=== PATIENT | male | born 1955 | race Caucasian/White ===

== ENCOUNTER 2017-02-27 18:19 | Emergency (ER) | payer MEDICAID ==
[~2017-02-27] VITALS: Ht 154.9 cm; Wt 5.4 kg
[2017-02-27 19:16] LABS: Hematocrit 37.9 % (41.0-53.0); Hemoglobin 13.1 g/dL (13.5-17.5); Mean Corpuscular Hgb Conc. 34.6 g/dL (32.0-36.0); Mean Platelet Volume 9.4 fL (7.4-10.4); Platelet Count (auto) 380 10^3/uL (140-450); Red Cell Distribution Width 13.8 % (11.6-16.0); White Blood Cell 9.1 10^3/uL (4.4-10.8)
[2017-02-27 19:19] LABS: Metamyelocytes % 0; Myelocytes % 0; Promyelocytes % 0; Reactive Lymphocytes 0
[2017-02-27 19:41] LABS: Albumin 3.1 g/dL (3.4-5.0); Alkaline Phosphatase 1439 U/L (45-117); Anion Gap 16 (5-15); Aspartate Aminotransferase 305 U/L (15-37); BUN/Creatinine Ratio 13.8; Bilirubin, Total 14.4 mg/dL (0.2-1.0); Blood Urea Nitrogen 8 mg/dL (7-18); Calcium 9.1 mg/dL (8.5-10.1); Carbon Dioxide 25 mmol/L (21-32); Chloride 83 mmol/L (98-107); GFR African American 184 mL/min; GFR Non-African American 152 mL/min; Glucose 195 mg/dL (74-106); Magnesium 1.5 mg/dL (1.6-2.6); Potassium 3.4 mmol/L (3.5-5.1); Sodium 124 mmol/L (136-145); Total Protein 7.1 g/dL (6.4-8.2)
[2017-02-27 21:25] LABS: Platelet Estimate Adequate
[2017-02-27 21:26] LABS: Macrocytosis Slight
[2017-02-27 21:31] LABS: Amylase 26 U/L (25-115)
[2017-02-27] MEDS ORDERED: MORPHINE SULFATE 4 MG/ML SYRG IV ONE (21:45)
[2017-02-27] MEDS ORDERED: PANTOPRAZOLE SODIUM 40 MG/10 ML VIAL IV ONE (21:45)
[2017-02-27] MEDS ORDERED: ONDANSETRON HCL 4 MG/2 ML VIAL IV ONE (21:45)
[2017-02-27] MEDS ORDERED: SODIUM CHLORIDE 0.9% 1,000 ML IV ONE (21:45)
[2017-02-27] MEDS ORDERED: POTASSIUM CHL 10% (20 MEQ/15ML) ORAL SOLN PO ONE (21:45)
[2017-02-27] MEDS ORDERED: THIAMINE INJ 100 MG, MULTIPLE VITAMIN 10 ML, FOLIC ACID 1 MG, MAGNESIUM SULF SDV 50% 8 ... IV SCH ×5 (23:00)
[2017-02-28] MEDS ORDERED: HYDROcodone-ACET 5/325MG TAB PO ONE (05:45)
[2017-02-28] MEDS ORDERED: LORazepam 2MG/ML-1ML VIAL IV ONE (08:15)
[2017-02-28 12:59] VITALS: BP 149/89
[2017-02-28] MEDS ORDERED: MORPHINE SULFATE 4 MG/ML SYRG IV ONE (13:30)
[2017-02-28] MEDS ORDERED: ONDANSETRON HCL 4 MG/2 ML VIAL IV ONE (13:30)
== END 2017-02-28 13:33 | disposition short-term general hospital (02) ==
LOC: EDUNIT# 18:19 → EDBD 18:19 → ER 18:34
DX: R17 Unspecified jaundice (principal); E11.65 Type 2 diabetes mellitus with hyperglycemia; F10.129 Alcohol abuse with intoxication, unspecified; Y90.8 Blood alcohol level of 240 mg/100 ml or more; F17.210 Nicotine dependence, cigarettes, uncomplicated
CPT/HCPCS: 36415; 74176; 76705; 80053; 80320; 82140; 82150; 82962; 83690; 83735; 84484; 85007; 85027; 93005; 96361; 96365; 96366; 96375; 96376; 99291; C9113; J2060; J2270; J2405; J3411; J3475; J7030; J7070

== ENCOUNTER 2017-03-10 18:30 | Emergency (ER) | payer MEDICAID ==
[~2017-03-10] VITALS: Ht 182.9 cm; Wt 72.6 kg
[2017-03-10 19:20] LABS: DEFINITIVE VIEW TRANSMISSION; Hematocrit 29.9 % (41.0-53.0); Hemoglobin 10.2 g/dL (13.5-17.5); Mean Corpuscular Hemoglobin 34.6 pg (28.0-32.0); Mean Corpuscular Volume 101.6 fL (80.0-100.0); Mean Platelet Volume 9.8 fL (7.4-10.4); Platelet Count (auto) 357 10^3/uL (140-450); SUSPECT VIEW TRANSMISSION
[2017-03-10 19:30] LABS: Metamyelocytes % 0; Myelocytes % 0; Promyelocytes % 0; Reactive Lymphocytes 0
[2017-03-10 20:06] LABS: Albumin 3.1 g/dL (3.4-5.0); Alkaline Phosphatase 1097 U/L (45-117); Anion Gap 12 (5-15); Aspartate Aminotransferase 98 U/L (15-37); BUN/Creatinine Ratio 17.4; Bilirubin, Total 6.4 mg/dL (0.2-1.0); Blood Urea Nitrogen 15 mg/dL (7-18); Carbon Dioxide 26 mmol/L (21-32); Chloride 93 mmol/L (98-107); GFR African American 117 mL/min; GFR Non-African American 96 mL/min; Glucose 379 mg/dL (74-106); Magnesium 1.5 mg/dL (1.6-2.6); Potassium 3.6 mmol/L (3.5-5.1); Sodium 131 mmol/L (136-145); Total Protein 7.4 g/dL (6.4-8.2)
[2017-03-10 20:32] LABS: Macrocytosis Slight; Platelet Estimate Adequate
[2017-03-10 20:42] LABS: INR 0.96 (0.9-1.15); Partial Thromboplastin Time 25.7 sec (22.64-33.71); Prothrombin Time 10.5 sec (9.37-12.3)
[2017-03-10] MEDS ORDERED: SODIUM CHLORIDE 0.9% 1,000 ML IV ONE ×2 (21:17)
[2017-03-10] MEDS ORDERED: LORazepam 2MG/ML-1ML VIAL IV ONE (21:30)
[2017-03-10] MEDS ORDERED: InsuLIN REG 1unit/0.01ml Soln (100units/ml) IV ONE (21:45)
[2017-03-10 21:56] LABS: Amylase 29 U/L (25-115)
[2017-03-10 22:13] LABS: B-Type Natriuretic Peptide 64.16 pg/mL (0-100)
[2017-03-10 22:14] LABS: Temperature: 24.1 C (20.0-25.0)
[2017-03-11] MEDS ORDERED: PIPERACILLIN-TAZOB 3.375GM 100 ML IV ONE (00:30)
[2017-03-11 03:31] VITALS: BP 137/85
[2017-03-11 04:05] LABS: Urine Bilirubin Negative (Negative); Urine Blood TRACE /uL (Negative); Urine Color Yellow (Yellow); Urine Ketone Negative (Negative); Urine Nitrite Negative (Negative); Urine RBC 4 /hpf (0 - 3); Urine Urobilinogen >12.0 mg/dL (Negative)
[2017-03-11 04:07] LABS: Urine Glucose 4+ mg/dL (Normal)
== END 2017-03-11 03:35 | disposition home or self-care (01) ==
LOC: ER 18:34
DX: E11.65 Type 2 diabetes mellitus with hyperglycemia (principal); F17.210 Nicotine dependence, cigarettes, uncomplicated; E87.1 Hypo-osmolality and hyponatremia
CPT/HCPCS: 36415; 71010; 74176; 80053; 81001; 82150; 82962; 83605; 83690; 83735; 83880; 84484; 85007; 85027; 85610; 85730; 87040; 96361; 96365; 96375; 99285; J2060; J2543; J7030

== ENCOUNTER 2017-09-29 16:05 | Emergency (ER) | payer MEDICAID ==
[~2017-09-29] VITALS: Ht 182.9 cm; Wt 72.6 kg
[2017-09-29 17:17] LABS: Basophils # (auto) 0 uL; Basophils % (auto) 0.4 % (0.0-2.0); Eosinophils # (auto) 0.1 uL; Eosinophils % (auto) 1.7 % (0.0-7.0); Hematocrit 41.7 % (41.0-53.0); Hemoglobin 14.6 g/dL (13.5-17.5); Lymphocytes # (auto) 1.5 uL; Mean Corpuscular Hemoglobin 34.1 pg (28.0-32.0); Mean Corpuscular Volume 97.6 fL (80.0-100.0); Mean Platelet Volume 8.6 fL (6.9-10.8); Monocytes # (auto) 0.9 uL; Monocytes % (auto) 12.3 % (0.0-12.0); Neutrophils # (auto) 4.9 uL; Neutrophils % (auto) 65.6 % (37.0-80.0); Nucleated Red Blood Cells % 0.2 %; Platelet Count (auto) 223 10^3/uL (140-450); Red Cell Distribution Width 12.9 % (11.8-14.3); White Blood Cell 7.5 10^3/uL (4.4-10.8)
[2017-09-29 17:29] LABS: Albumin 4.4 g/dL (3.4-5.0); Anion Gap 8 (5-15); BUN/Creatinine Ratio 11.9; Blood Urea Nitrogen 10 mg/dL (7-18); Calcium 8.8 mg/dL (8.5-10.1); Carbon Dioxide 27 mmol/L (21-32); Chloride 98 mmol/L (98-107); GFR African American 120 mL/min; GFR Non-African American 99 mL/min; Glucose 142 mg/dL (74-106); Potassium 3.9 mmol/L (3.5-5.1); Sodium 133 mmol/L (136-145)
[2017-09-29 17:34] LABS: Alkaline Phosphatase 80 U/L (45-117); Aspartate Aminotransferase 26 U/L (15-37); Bilirubin, Total 1.4 mg/dL (0.2-1.0); Total Protein 7.9 g/dL (6.4-8.2)
[2017-09-29] MEDS ORDERED: SODIUM CHLORIDE 0.9% 1,000 ML IVB ONE (20:48)
[2017-09-29 21:08] LABS: Allen Test Yes; Blood 02Sat 95.5 % (96-100); Blood COHb 6.3 % (0.5-1.5); HCO3 20.9 mmol/L (22-26.0); HHb 4.2 % (0.0-5.0); MODE ROOM AIR; O2Hb 89.5 % (94.0-97.0); PCO2 30.8 mmHg (35.0-45.0); PCO2(T) 30.8 mmHg (35.0-45.0); PO2 81.5 mmHg (80.0-100.0); PO2(T) 81.5 mmHg (80.0-100.0); Sample Type Arterial
[2017-09-29 21:23] LABS: B-Type Natriuretic Peptide 79.57 pg/mL (0-100)
[2017-09-29 21:26] LABS: Temperature: 23.3 C (20.0-25.0)
[2017-09-29] MEDS: MAGNESIUM SULFATE 1GM/100ML 100 ML IV SCH ×2 (22:30→23:26)
[2017-09-30] MEDS: MAGNESIUM SULFATE 1GM/100ML 100 ML IV SCH (00:08)
[2017-09-30] MEDS ORDERED: LORazepam 0.5 MG TAB PO ONE (00:15)
[2017-09-30 04:52] LABS: Urine RBC None Seen /hpf (0 - 3)
[2017-09-30 04:58] LABS: Urine Bilirubin Negative (Negative); Urine Blood Negative /uL (Negative); Urine Color Yellow (Yellow); Urine Glucose Normal (Normal); Urine Ketone Negative (Negative); Urine Nitrite Negative (Negative)
[2017-09-30 06:05] VITALS: BP 120/79
== END 2017-09-30 06:44 | disposition home or self-care (01) ==
LOC: ER 16:09
DX: F41.9 Anxiety disorder, unspecified (principal); R26.89 Other abnormalities of gait and mobility; E11.9 Type 2 diabetes mellitus without complications; K74.60 Unspecified cirrhosis of liver; R53.1 Weakness; F17.210 Nicotine dependence, cigarettes, uncomplicated
CPT/HCPCS: 36415; 36600; 71020; 80053; 81001; 82805; 83735; 83880; 84443; 84484; 85025; 93005; 96361; 96365; 96366; 99285; J3475; J7030; J7040

== ENCOUNTER 2017-11-22 11:33 | Inpatient (IN) | payer MEDICAID ==
[~2017-11-22] VITALS: Ht 182.9 cm; Wt 69.4 kg
[2017-11-22] MEDS ORDERED: SODIUM CHLORIDE 0.9% 1,000 ML IVB ONE (11:49)
[2017-11-22] MEDS ORDERED: ONDANSETRON HCL 4 MG/2 ML VIAL IV ONE (12:00)
[2017-11-22 12:16] LABS: Basophils # (auto) 0 uL; Basophils % (auto) 0.4 % (0.0-2.0); Eosinophils # (auto) 0 uL; Eosinophils % (auto) 0.4 % (0.0-7.0); Hematocrit 35.6 % (41.0-53.0); Hemoglobin 12.3 g/dL (13.5-17.5); Lymphocytes # (auto) 0.8 uL; Lymphocytes % (auto) 15.9 % (10.0-50.0); Mean Corpuscular Hemoglobin 33.7 pg (28.0-32.0); Mean Corpuscular Hgb Conc. 34.6 g/dL (32.0-36.0); Mean Corpuscular Volume 97.4 fL (80.0-100.0); Monocytes # (auto) 0.6 uL; Monocytes % (auto) 12.2 % (0.0-12.0); Neutrophils # (auto) 3.4 uL; Neutrophils % (auto) 71.1 % (37.0-80.0); Platelet Count (auto) 81 10^3/uL (140-450); Red Blood Cells 3.65 10^6/uL (4.5-5.90); Red Cell Distribution Width 13.7 % (11.8-14.3); White Blood Cell 4.8 10^3/uL (4.4-10.8)
[2017-11-22 12:28] LABS: INR 1.08 (0.9-1.15); Prothrombin Time 11.8 sec (9.37-12.3)
[2017-11-22 12:30] LABS: Calcium 9.2 mg/dL (8.5-10.1); Magnesium 1.2 mg/dL (1.6-2.6); Potassium 3.9 mmol/L (3.5-5.1)
[2017-11-22 12:32] LABS: BUN/Creatinine Ratio 23.5
[2017-11-22 12:35] LABS: Total Protein 6.9 g/dL (6.4-8.2)
[2017-11-22] MEDS: MAGNESIUM SULFATE 1GM/100ML 100 ML IV SCH ×3 (16:10→19:10)
[2017-11-22] MEDS ORDERED: NITROGLYCERIN 0.4 MG SL TAB SL PRN (17:15)
[2017-11-22] MEDS ORDERED: DEXTROSE (50%) 50ML SYRG IV PRN (17:15)
[2017-11-22] MEDS ORDERED: ACETAMINOPHEN 500 MG TAB PO PRN (17:15)
[2017-11-22] MEDS ORDERED: PROMETHAZINE HCL 25 MG/ML 1ML IV PRN (17:15)
[2017-11-22] MEDS ORDERED: MORPHINE SULFATE 4 MG/ML SYR/VIAL IV PRN ×2 (17:15)
[2017-11-22] MEDS ORDERED: LACTULOSE 20Gm/30ML SOLN PO PRN (17:15)
[2017-11-22] MEDS: SODIUM CHLORIDE 0.9% 1,000 ML IV SCH ×2 (17:27→18:27)
[2017-11-22] MEDS: ACCU-CHEK COMFORT CURVE STRIP VI SCH (17:28)
[2017-11-22] MEDS: HYDROcodone-ACET 5/325MG TAB PO PRN ×2 (17:29→21:22)
[2017-11-22] MEDS: LORazepam 0.5 MG TAB PO PRN (17:29)
[2017-11-22] MEDS: InsuLIN REG 1unit/0.01ml Soln (100units/ml) SC SCH (17:50)
[2017-11-22] MEDS ORDERED: THIAMINE HCL 100 MG/ML 2ML VIAL IV ONE (18:30)
[2017-11-22] MEDS: TEMAZEPAM 15 MG CAP PO PRN (21:21)
[2017-11-22] MEDS: chlordiazePOXIDE HCL 5 MG CAP PO SCH (21:22)
[2017-11-22 21:40] LABS: Urine Bacteria NONE SEEN /hpf (None Seen); Urine Blood Negative /uL (Negative); Urine Hyaline Cast FEW /lpf (0 - 2); Urine Mucus FEW (None Seen); Urine Specific Gravity 1.021 (1.001-1.035); Urine WBC 1 /hpf (0 - 3)
[2017-11-22 22:00] VITALS: BP 135/87
[2017-11-23 05:06] LABS: Basophils # (auto) 0 uL; Basophils % (auto) 0.4 % (0.0-2.0); Eosinophils # (auto) 0.1 uL; Hemoglobin 11.8 g/dL (13.5-17.5); Mean Corpuscular Hemoglobin 34.4 pg (28.0-32.0); Monocytes # (auto) 0.5 uL; Neutrophils # (auto) 2.6 uL
[2017-11-23 05:08] LABS: Eosinophils % (auto) 1.4 % (0.0-7.0); Hematocrit 33.7 % (41.0-53.0); Lymphocytes # (auto) 0.9 uL; Lymphocytes % (auto) 22.8 % (10.0-50.0); Mean Corpuscular Volume 98.3 fL (80.0-100.0); Monocytes % (auto) 11.9 % (0.0-12.0); Neutrophils % (auto) 63.5 % (37.0-80.0); Nucleated Red Blood Cells % 0.1 %; Platelet Count (auto) 71 10^3/uL (140-450); Red Blood Cells 3.43 10^6/uL (4.5-5.90); Red Cell Distribution Width 13.9 % (11.8-14.3); White Blood Cell 4.1 10^3/uL (4.4-10.8)
[2017-11-23] MEDS: chlordiazePOXIDE HCL 5 MG CAP PO SCH ×3 (05:28→17:48)
[2017-11-23 05:30] LABS: Albumin 3.5 g/dL (3.4-5.0); BUN/Creatinine Ratio 24.1; Bilirubin, Total 2.3 mg/dL (0.2-1.0); Calcium 8.6 mg/dL (8.5-10.1); Potassium 3.3 mmol/L (3.5-5.1); Total Protein 6.3 g/dL (6.4-8.2)
[2017-11-23 05:32] VITALS: BP 108/65
[2017-11-23] MEDS: InsuLIN REG 1unit/0.01ml Soln (100units/ml) SC SCH ×4 (06:00→17:08)
[2017-11-23] MEDS: ACCU-CHEK COMFORT CURVE STRIP VI SCH ×4 (06:00→17:07)
[2017-11-23] MEDS: SODIUM CHLORIDE 0.9% 1,000 ML IV SCH ×2 (07:10→10:19)
[2017-11-23 09:00] VITALS: BP 116/68
[2017-11-23] MEDS ORDERED: POTASSIUM CHLORIDE 40 MEQ, LIDOCAINE 1% (LOCAL ANESTH.) 4 ML in SODIUM CHL 0.9% 100 ML IV ONE (10:15)
[2017-11-23] MEDS: THIAMINE HCL 100 MG/ML 2ML VIAL IV SCH (10:17)
[2017-11-23] MEDS: PANTOPRAZOLE 40 MG TAB PO SCH (10:17)
[2017-11-23] MEDS: GABAPENTIN 300 MG CAP PO SCH (10:17)
[2017-11-23 10:57] LABS: Basophils # (auto) 0 uL; Eosinophils # (auto) 0.1 uL; Eosinophils % (auto) 1.6 % (0.0-7.0); Monocytes # (auto) 0.4 uL; Neutrophils # (auto) 2.3 uL; Platelet Count (auto) 74 10^3/uL (140-450); Red Blood Cells 3.52 10^6/uL (4.5-5.90); White Blood Cell 3.4 10^3/uL (4.4-10.8)
[2017-11-23 10:59] LABS: Basophils % (auto) 0.7 % (0.0-2.0); Hematocrit 34.9 % (41.0-53.0); Lymphocytes # (auto) 0.6 uL; Lymphocytes % (auto) 18.7 % (10.0-50.0); Mean Corpuscular Hgb Conc. 34.3 g/dL (32.0-36.0); Mean Corpuscular Volume 99.1 fL (80.0-100.0); Monocytes % (auto) 11.7 % (0.0-12.0); Neutrophils % (auto) 67.3 % (37.0-80.0); Nucleated Red Blood Cells % 0.1 %; Red Cell Distribution Width 13.8 % (11.8-14.3)
[2017-11-23 11:17] LABS: Albumin 3.6 g/dL (3.4-5.0); BUN/Creatinine Ratio 19.4; Bilirubin, Total 2.5 mg/dL (0.2-1.0); Calcium 8.3 mg/dL (8.5-10.1); Potassium 3.5 mmol/L (3.5-5.1); Total Protein 6.6 g/dL (6.4-8.2)
[2017-11-23] MEDS: chlordiazePOXIDE HCL 25 MG CAP PO PRN ×2 (11:39→11:42)
[2017-11-23] MEDS: HYDROcodone-ACET 5/325MG TAB PO PRN (11:39)
[2017-11-23 13:00] VITALS: BP 117/67
[2017-11-23] MEDS: LORazepam 0.5 MG TAB PO PRN (15:02)
[2017-11-23 17:02] VITALS: BP 126/68
[2017-11-23 20:00] VITALS: BP 127/80
[2017-11-23] MEDS: TEMAZEPAM 15 MG CAP PO PRN (21:35)
[2017-11-24] VITALS (7 sets, daily range): BP systolic 112–130; BP diastolic 68–84
[2017-11-24] MEDS: InsuLIN REG 1unit/0.01ml Soln (100units/ml) SC SCH ×5 (00:01→23:51)
[2017-11-24] MEDS: ACCU-CHEK COMFORT CURVE STRIP VI SCH ×5 (00:01→23:59)
[2017-11-24] MEDS: chlordiazePOXIDE HCL 5 MG CAP PO SCH ×5 (00:01→23:44)
[2017-11-24] MEDS: GABAPENTIN 300 MG CAP PO SCH (09:54)
[2017-11-24] MEDS: PANTOPRAZOLE 40 MG TAB PO SCH (09:54)
[2017-11-24] MEDS: SODIUM CHLORIDE 0.9% 1,000 ML IV SCH ×2 (09:54→19:10)
[2017-11-24] MEDS: THIAMINE HCL 100 MG/ML 2ML VIAL IV SCH (09:54)
[2017-11-24] MEDS ORDERED: LORA1TAB12 (14:48)
[2017-11-24] MEDS ORDERED: FLUO40CA (14:48)
[2017-11-24] MEDS ORDERED: GLIP-116 (14:48)
[2017-11-24] MEDS ORDERED: METF-372 (14:48)
[2017-11-24] MEDS ORDERED: HYDR-4072 (14:48)
[2017-11-24] MEDS: HYDROcodone-ACET 5/325MG TAB PO PRN ×2 (15:35→21:35)
[2017-11-24] MEDS: TEMAZEPAM 15 MG CAP PO PRN (21:35)
[2017-11-25 05:00] VITALS: BP 108/64
[2017-11-25] MEDS: SODIUM CHLORIDE 0.9% 1,000 ML IV SCH (05:10)
[2017-11-25] MEDS: chlordiazePOXIDE HCL 5 MG CAP PO SCH ×2 (05:50→12:00)
[2017-11-25] MEDS: InsuLIN REG 1unit/0.01ml Soln (100units/ml) SC SCH ×2 (05:59→12:00)
[2017-11-25] MEDS: ACCU-CHEK COMFORT CURVE STRIP VI SCH ×2 (06:00→12:00)
[2017-11-25 06:33] LABS: Basophils # (auto) 0 uL; Eosinophils # (auto) 0.1 uL; Lymphocytes # (auto) 0.9 uL; Monocytes # (auto) 0.5 uL; Red Cell Distribution Width 13.6 % (11.8-14.3); White Blood Cell 3.7 10^3/uL (4.4-10.8)
[2017-11-25 06:37] LABS: Basophils % (auto) 0.6 % (0.0-2.0); Eosinophils % (auto) 3.3 % (0.0-7.0); Hematocrit 31.4 % (41.0-53.0); Lymphocytes % (auto) 23.4 % (10.0-50.0); Mean Corpuscular Hgb Conc. 35.1 g/dL (32.0-36.0); Mean Corpuscular Volume 99.7 fL (80.0-100.0); Monocytes % (auto) 13.3 % (0.0-12.0); Neutrophils # (auto) 2.2 uL; Neutrophils % (auto) 59.4 % (37.0-80.0); Nucleated Red Blood Cells % 0.1 %; Platelet Count (auto) 79 10^3/uL (140-450); Red Blood Cells 3.16 10^6/uL (4.5-5.90)
[2017-11-25 06:51] LABS: Albumin 3.4 g/dL (3.4-5.0); BUN/Creatinine Ratio 27.8; Bilirubin, Total 0.6 mg/dL (0.2-1.0); Calcium 8.8 mg/dL (8.5-10.1); Total Protein 6.2 g/dL (6.4-8.2)
[2017-11-25 08:00] VITALS: BP 139/84
[2017-11-25] MEDS: GABAPENTIN 300 MG CAP PO SCH (10:00)
[2017-11-25] MEDS: PANTOPRAZOLE 40 MG TAB PO SCH (10:00)
[2017-11-25] MEDS: THIAMINE HCL 100 MG/ML 2ML VIAL IV SCH (10:01)
[2017-11-25 12:19] VITALS: BP 120/75
== END 2017-11-25 14:20 | disposition home or self-care (01) | DRG 248 ==
LOC: EDBD 11:33 → ER 11:33 → TELE 11:34 → TELE-CENTR 20:40
PROVIDERS: ADMIT Internal Medicine; ATTEND Internal Medicine
DX: A04.72 Enterocolitis due to Clostridium difficile, not specified as recurrent (principal); E11.42 Type 2 diabetes mellitus with diabetic polyneuropathy; D69.6 Thrombocytopenia, unspecified; K86.1 Other chronic pancreatitis; M48.56XA Collapsed vertebra, not elsewhere classified, lumbar region, initial encounter for fracture; K70.9 Alcoholic liver disease, unspecified; E83.42 Hypomagnesemia; N20.0 Calculus of kidney; K52.9 Noninfective gastroenteritis and colitis, unspecified; J44.9 Chronic obstructive pulmonary disease, unspecified; E78.5 Hyperlipidemia, unspecified; I25.10 Atherosclerotic heart disease of native coronary artery without angina pectoris; F17.210 Nicotine dependence, cigarettes, uncomplicated; F32.9 Major depressive disorder, single episode, unspecified; F41.9 Anxiety disorder, unspecified; I71.4 Abdominal aortic aneurysm, without rupture; K57.90 Diverticulosis of intestine, part unspecified, without perforation or abscess without bleeding; Z82.49 Family history of ischemic heart disease and other diseases of the circulatory system; Z87.442 Personal history of urinary calculi
CPT/HCPCS: 36415; 71045; 74176; 76705; 80053; 80061; 81001; 82150; 82270; 82962; 83036; 83605; 83690; 83735; 85025; 85610; 85652; 85730; 86141; 87040; 87077; 87081; 87186; 87493; 93005; 94761; 96361; 96374; 96375; J1815; J2001; J2405

== ENCOUNTER 2018-12-16 02:20 | Inpatient (IN) | payer MEDICAID | END 2018-12-19 12:30 | disposition home or self-care (01) | LOC: TELE-CENTR 21:03 → ER 02:20 → TELE 13:49 → TELE-CENTR 21:36 | DX: K52.9 Noninfective gastroenteritis and colitis, unspecified (principal); E11.65 Type 2 diabetes mellitus with hyperglycemia; E83.42 Hypomagnesemia; E87.1 Hypo-osmolality and hyponatremia; R17 Unspecified jaundice; K50.90 Crohn's disease, unspecified, without complications; F19.10 Other psychoactive substance abuse, uncomplicated; F10.20 Alcohol dependence, uncomplicated ==

== ENCOUNTER 2019-05-04 10:50 | Emergency (ER) | payer MEDICAID ==
[~2019-05-04] VITALS: Ht 182.9 cm; Wt 68.0 kg
[~2019-05-04 10:50] MED LIST: GLIP5TAB12 PO; METF-372 PO
[2019-05-04 11:04] VITALS: BP 128/74
[2019-05-04] MEDS ORDERED: DexAMETHasone SOD PHOS 4 MG/1ML SDV INJ IM ONE (12:15)
[2019-05-04] MEDS ORDERED: cefTRIAXone SOD 1,000 MG VL IM ONE (12:15)
[2019-05-04] MEDS ORDERED: LIDOCAINE 1% HCL (LOCAL ANESTH.) INJ 20ML MDV IJ ONE (12:15)
== END 2019-05-04 12:47 | disposition home or self-care (01) ==
LOC: ER 10:56
DX: M25.461 Effusion, right knee (principal); E11.9 Type 2 diabetes mellitus without complications; E78.5 Hyperlipidemia, unspecified; F17.210 Nicotine dependence, cigarettes, uncomplicated; Z88.8 Allergy status to other drugs, medicaments and biological substances
CPT/HCPCS: 20610; 73562; 83986; 87205; 89051; 96372; 99284; J0696; J1100; J2001

== ENCOUNTER 2019-12-24 14:31 | Inpatient (IN) | payer MEDICAID ==
[~2019-12-24] VITALS: Ht 182.9 cm; Wt 100.1 kg
[2019-12-24] MEDS ORDERED: SODIUM CHLORIDE 0.9% 1,000 ML IV ONE (14:58)
[2019-12-24] MEDS ORDERED: InsuLIN REG 1unit/0.01ml Soln (100units/ml) IV ONE (15:00)
[2019-12-24 15:19] LABS: Basophils # (auto) 0.1 10 ^3/uL (0-0.2); Eosinophils # (auto) 0.2 10 ^3/uL (0-0.8); Eosinophils % (auto) 3.4 % (0.0-7.0); Hematocrit 38.7 % (41.0-53.0); Hemoglobin 13.4 g/dL (13.5-17.5); Lymphocytes # (auto) 1.2 10 ^3/uL (0.4-5.4); Lymphocytes % (auto) 21.1 % (10.0-50.0); Mean Corpuscular Hemoglobin 33.3 pg (28.0-32.0); Mean Corpuscular Hgb Conc. 34.7 g/dL (32.0-36.0); Mean Corpuscular Volume 95.9 fL (80.0-100.0); Monocytes # (auto) 0.6 10 ^3/uL (0-1.3); Monocytes % (auto) 10.6 % (0.0-12.0); Neutrophils # (auto) 3.5 10 ^3/uL (1.6-8.6); Neutrophils % (auto) 63.9 % (37.0-80.0); Nucleated Red Blood Cells % 0.1 %; Platelet Count (auto) 133 10^3/uL (140-450); Red Blood Cells 4.03 10^6/uL (4.5-5.90); Red Cell Distribution Width 13.9 % (11.8-14.3); White Blood Cell 5.5 10^3/uL (4.4-10.8)
[2019-12-24 15:33] LABS: Albumin 3.8 g/dL (3.4-5.0); Anion Gap 5 (5-15); Blood Urea Nitrogen 17 mg/dL (7-18); Calcium 9.4 mg/dL (8.5-10.1); Carbon Dioxide 29 mmol/L (21-32); Chloride 103 mmol/L (98-107); Glucose 371 mg/dL (74-106); Magnesium 1.5 mg/dL (1.6-2.6); Sodium 137 mmol/L (136-145)
[2019-12-24 15:39] LABS: Alanine Aminotransferase 30 U/L (16-61); Alkaline Phosphatase 96 U/L (45-117); Aspartate Aminotransferase 21 U/L (15-37); BUN/Creatinine Ratio 19.1; Bilirubin, Total 0.4 mg/dL (0.2-1.0); GFR African American 111 mL/min; GFR Non-African American 92 mL/min
[2019-12-24] MEDS ORDERED: NITROGLYCERIN 0.4 MG SL TAB SL PRN (17:00)
[2019-12-24] MEDS ORDERED: INSULIN LANTUS (GLARGINE) 1 /0.01ml (100units/ml) SC ONE (17:00)
[2019-12-24] MEDS ORDERED: hydrALAZINE HCL 20 MG/ML VL IV PRN (17:00)
[2019-12-24] MEDS ORDERED: MORPHINE SULF INJ 2 MG/ML SYRINGE 1ML IV PRN (17:00)
[2019-12-24] MEDS: InsuLIN REG 1unit/0.01ml Soln (100units/ml) SC SCH (17:00)
[2019-12-24] MEDS ORDERED: DEXTROSE (50%) 50ML SYRG IV PRN (17:00)
[2019-12-24] MEDS ORDERED: ONDANSETRON HCL 4 MG/2 ML VIAL IV PRN (17:00)
[2019-12-24] MEDS: SODIUM CHLORIDE 0.9% 1,000 ML IV SCH (17:22)
[2019-12-24] MEDS: ACCU-CHEK COMFORT CURVE STRIP VI SCH ×2 (17:22→22:01)
[2019-12-24] MEDS: metFORMIN HYDROCHLORIDE 500 MG TAB PO SCH (18:29)
[2019-12-24 19:12] LABS: Urine Bacteria NONE SEEN /hpf (None Seen); Urine Blood TRACE /uL (Negative); Urine Specific Gravity 1.025 (1.001-1.035); Urine WBC 2 /hpf (0 - 3)
[2019-12-24] MEDS ORDERED: InsuLIN REG 1unit/0.01ml Soln (100units/ml) SC SCH (22:00)
[2019-12-24 22:49] VITALS: BP 142/80
[2019-12-24] MEDS: MORPHINE SULF INJ 2 MG/ML SYRINGE 1ML IV PRN (23:31)
[2019-12-25] MEDS ORDERED: GLIP5TAB12 PO (03:10)
[2019-12-25] MEDS ORDERED: METF-372 PO (03:10)
[2019-12-25] MEDS: SODIUM CHLORIDE 0.9% 1,000 ML IV SCH ×2 (03:59→09:00)
[2019-12-25] MEDS: MORPHINE SULF INJ 2 MG/ML SYRINGE 1ML IV PRN (04:00)
[2019-12-25 05:43] VITALS: BP 129/68
[2019-12-25] MEDS: ACCU-CHEK COMFORT CURVE STRIP VI SCH ×2 (06:34→12:37)
[2019-12-25] MEDS: InsuLIN REG 1unit/0.01ml Soln (100units/ml) SC SCH ×2 (06:35→12:36)
[2019-12-25] MEDS ORDERED: glipiZIDE 5 MG TAB PO SCH (07:00)
[2019-12-25 07:14] LABS: Basophils # (auto) 0 10 ^3/uL (0-0.2); Basophils % (auto) 0.6 % (0.0-2.0); Eosinophils # (auto) 0.2 10 ^3/uL (0-0.8); Eosinophils % (auto) 4.4 % (0.0-7.0); Hematocrit 40.2 % (41.0-53.0); Hemoglobin 13.6 g/dL (13.5-17.5); Lymphocytes # (auto) 1.6 10 ^3/uL (0.4-5.4); Lymphocytes % (auto) 27.9 % (10.0-50.0); Mean Corpuscular Hemoglobin 32.2 pg (28.0-32.0); Mean Corpuscular Hgb Conc. 33.7 g/dL (32.0-36.0); Mean Corpuscular Volume 95.5 fL (80.0-100.0); Monocytes # (auto) 0.6 10 ^3/uL (0-1.3); Monocytes % (auto) 11.4 % (0.0-12.0); Neutrophils # (auto) 3.1 10 ^3/uL (1.6-8.6); Neutrophils % (auto) 55.7 % (37.0-80.0); Platelet Count (auto) 136 10^3/uL (140-450); Red Blood Cells 4.21 10^6/uL (4.5-5.90); Red Cell Distribution Width 13.9 % (11.8-14.3); White Blood Cell 5.6 10^3/uL (4.4-10.8)
[2019-12-25 07:32] LABS: Albumin 3.1 g/dL (3.4-5.0); Calcium 8.3 mg/dL (8.5-10.1); Potassium 4.4 mmol/L (3.5-5.1)
[2019-12-25 07:36] LABS: BUN/Creatinine Ratio 24.2; Bilirubin, Total 0.5 mg/dL (0.2-1.0); Total Protein 5.9 g/dL (6.4-8.2)
[2019-12-25] MEDS: metFORMIN HYDROCHLORIDE 500 MG TAB PO SCH (08:38)
[2019-12-25 09:00] VITALS: BP 143/86
[2019-12-25] MEDS ORDERED: INSULIN LANTUS (GLARGINE) 1 /0.01ml (100units/ml) SC SCH (10:00)
[2019-12-25 13:00] VITALS: BP 153/96
== END 2019-12-25 16:30 | disposition home or self-care (01) | DRG 420 ==
LOC: ER 14:31 → TELE 14:32 → TELE-EAST 19:59
PROVIDERS: ADMIT Internal Medicine; ATTEND Internal Medicine
DX: E11.65 Type 2 diabetes mellitus with hyperglycemia (principal); E66.9 Obesity, unspecified; F41.9 Anxiety disorder, unspecified; F32.9 Major depressive disorder, single episode, unspecified; E78.5 Hyperlipidemia, unspecified; I10 Essential (primary) hypertension; F17.210 Nicotine dependence, cigarettes, uncomplicated; H53.8 Other visual disturbances; Z82.49 Family history of ischemic heart disease and other diseases of the circulatory system; Z79.84 Long term (current) use of oral hypoglycemic drugs; Z68.29 Body mass index [BMI] 29.0-29.9, adult; R42 Dizziness and giddiness
CPT/HCPCS: 36415; 71045; 80053; 81001; 82962; 83735; 84484; 85025; 93005; 96361; 96372; 96374; G0378; J1815